=== PATIENT | female | born 1970 | race Caucasian/White ===

== ENCOUNTER 2025-06-03 09:13 | Outpatient (CLI) | payer BC, SELFPAY ==
--- NOTE | 2025-06-03 10:50 | P.ANES_ITS ---
Anesthesia Charges Start Date/Time Anesthesia Start Date: 06/03/25 Anesthesia Start Time: 10:30 Stop Date/Time Anesthesia Stop Date: 06/03/25 Anesthesia Stop Time: 10:49 Coding CPT Codes CPT Codes: ANES LWR INTST SCR COLSC - [id number] ([id number]) QX - WELLNESS COORDINATOR SVC W/ MD MED DIRECTION, QK - TRUCK LEASING MANAGER 2-4 CNCRNT ANES PROC, P2 - PATIENT W/MILD SYST DISEASE
--- NOTE | 2025-06-03 10:50 | W.ANESCHARGE ---
Anesthesia Charges Start Date/Time Anesthesia Start Date: 06/03/25 Anesthesia Start Time: 10:30 Stop Date/Time Anesthesia Stop Date: 06/03/25 Anesthesia Stop Time: 10:49 Coding CPT Codes CPT Codes: ANES LWR INTST SCR COLSC - [id number] ([id number]) QX - DEBURR OPERATOR SVC W/ MD MED DIRECTION, QK - CLASS A REGIONAL DRIVERS 2-4 CNCRNT ANES PROC, P2 - PATIENT W/MILD SYST DISEASE
--- NOTE | 2025-06-03 12:06 | P.ANES_ITS ---
Anesthesia Charges Start Date/Time Anesthesia Start Date: 06/03/25 Anesthesia Start Time: 10:30 Stop Date/Time Anesthesia Stop Date: 06/03/25 Anesthesia Stop Time: 10:49 Coding CPT Codes CPT Codes: MICHAEL LWR INTST SCR COLSC - [id number] ([id number]) P2 - PATIENT W/MILD SYST DISEASE, QK - TRACK GRINDER 2-4 CNCRNT ANES PROC, QX - CLIN TECH SVC W/ MD MED DIRECTION
--- NOTE | 2025-06-03 12:06 | W.ANESCHARGE ---
Anesthesia Charges Start Date/Time Anesthesia Start Date: 06/03/25 Anesthesia Start Time: 10:30 Stop Date/Time Anesthesia Stop Date: 06/03/25 Anesthesia Stop Time: 10:49 Coding CPT Codes CPT Codes: MICHAEL LWR INTST SCR COLSC - [id number] ([id number]) P2 - PATIENT W/MILD SYST DISEASE, QK - INTEGRATED PROGRAM TEACHER 2-4 CNCRNT ANES PROC, QX - STEM FRAZER SVC W/ MD MED DIRECTION
== END 2025-06-03 09:14 | disposition home or self-care (01) ==
LOC: OP CLINIC 09:16
PROVIDERS: PCP Student in an Organized Health Care Education/Training Program; Visit Provider Internal Medicine Gastroenterology
DX: Z12.11 Encounter for screening for malignant neoplasm of colon (principal); K57.30 Diverticulosis of large intestine without perforation or abscess without bleeding
CPT/HCPCS: 00812; 45378; J2704